=== PATIENT | male | born 1970 | race Two or more races ===

== ENCOUNTER 2017-05-23 12:31 | Inpatient (IN) | payer SELFPAY ==
[~2017-05-23 12:31] MED LIST: DEXAMETHASONE SOD PHOSPHATE INJ 4 MG/1 ML VIAL ONE; GLYCOPYRROLATE INJ 0.4 MG/2 ML VIAL ONE; LIDOCAINE 2% INJ-PF (20 MG/ML) 10 ML AMPUL ONE; NEOSTIGMINE METHYLSULFATE 10 MG/10 ML VIAL ONE; ONDANSETRON HCL INJ/PF 4 MG/2 ML SDV ONE; ROCURONIUM BROMIDE INJ 50 MG/5 ML VIAL IV ONE; SUCCINYLCHOLINE CHLORIDE INJ 200 MG/10 ML VIAL ONE; VECURONIUM BROMIDE INJ 10 MG VIAL IV ONE
--- NOTE | 2017-05-23 13:20 | ER Document Report ---
ED Medical Screen (RME) - General Mode of Arrival: Ambulatory Information source: Patient TRAVEL OUTSIDE OF THE [place] IN LAST 30 DAYS: No - HPI Patient complains to provider of: Abdominal Pain Onset: Yesterday Associated Symptoms: Other - see notes above - Related Data Smoking: Non-smoker Frequency of alcohol use: Occasional Drug Abuse: None <SURI YUNG - Last Filed: 05/23/17 14:34> <JAMES NIÑO - Last Filed: 05/23/17 20:16> - General Chief Complaint: Abdominal Cramping Stated Complaint: ABDOMINAL PAIN Time Seen by Provider: 05/23/17 12:49 Notes: 46-year-old male with no history of diverticulosis presents to the ED complaining of sharp left lower quadrant abdominal pain which radiates to the suprapubic region and the right upper quadrant that started yesterday. Patient states that the pain does not radiate to his back or scrotum. Pain is worsened when laying down and walking. Patient denies any stool changes or history of hemorrhoids. Patient does complain of a fever (101-102F) and nausea, but denies vomiting and diarrhea. (SURI YUNG) - Related Data Allergies/Adverse Reactions: No Known Allergies Allergy (Unverified 09/18/14 08:12) Past Medical History - General Information source: Patient - Social History Cigarette use (# per day): No Chew tobacco use (# tins/day): No Frequency of alcohol use: Occasional Drug Abuse: None - Medical History Medical History: Negative Renal/ Medical History: Denies: Hx Peritoneal Dialysis Surgical Hx: Negative - Immunizations Hx Diphtheria, Pertussis, Tetanus Vaccination: Yes <SURI YUNG - Last Filed: 05/23/17 14:34> Review of Systems - Review of Systems Constitutional: See HPI, Fever EENT: No symptoms reported Cardiovascular: No symptoms reported Respiratory: No symptoms reported Gastrointestinal: See HPI, Abdominal pain, Nausea. denies: Diarrhea, Vomiting Genitourinary: No symptoms reported Male Genitourinary: No symptoms reported Musculoskeletal: No symptoms reported Skin: No symptoms reported Hematologic/Lymphatic: No symptoms reported Neurological/Psychological: No symptoms reported -: Yes All other systems reviewed and negative <SURI YUNG - Last Filed: 05/23/17 14:34> Physical Exam - General General appearance: Alert In distress: None - Respiratory Respiratory status: No respiratory distress Breath sounds: Normal - Cardiovascular Rhythm: Regular Heart sounds: Normal auscultation Murmur: No Friction rub: No Gallop: None auscultated - Abdominal Inspection: Normal Distension: No distension Bowel sounds: Normal Tenderness: Tender - Patient is exquisitely tender to the left lower quadrant, but is also tender to the suprapubic region and right upper quadrant.. No: Nontender <SURI YUNG - Last Filed: 05/23/17 14:34> Course - Laboratory Result Diagrams: 05/23/17 13:35 05/23/17 13:35 <SURI YUNG - Last Filed: 05/23/17 14:34> - Laboratory Result Diagrams: 05/23/17 13:35 05/23/17 13:35 <JAMES NIÑO - Last Filed: 05/23/17 20:16> - Vital Signs Vital signs: Temp Pulse Resp BP Pulse Ox 99.6 F 80 26 H 105/65 100 05/23/17 16:31 05/23/17 16:31 05/23/17 18:00 05/23/17 18:00 05/23/17 18:00 - Laboratory Laboratory results interpreted by me: 05/23/17 05/23/17 05/23/17 13:35 13:35 13:35 WBC 17.6 H RDW 15.0 H Seg Neutrophils % 84.0 H Lymphocytes % 10.7 L Absolute Neutrophils 14.7 H Potassium 3.5 L Glucose 135 H Urine Protein 100 H Urine Ketones TRACE H Urine Blood MODERATE H Urine Bilirubin MODERATE H Urine Urobilinogen 4.0 H Doctor's Discharge <SURI YUNG - Last Filed: 05/23/17 14:34> <JAMES NIÑO - Last Filed: 05/23/17 20:16> - Discharge Clinical Impression: Bowel perforation Scribe Documentation - Scribe Written by Kane:: Kane Valverde, 05/23/2017 1442 acting as scribe for :: Tom <SURI YUNG - Last Filed: 05/23/17 14:34>
[2017-05-23] MEDS ORDERED: ONDANSETRON HCL INJ/PF 4 MG/2 ML SDV IV ONE (13:26)
[2017-05-23 14:07] LABS: ABSOLUTE BASOPHILS # (AUTO) 0.1 10^3/uL (0.0-0.2); ABSOLUTE LYMPHOCYTES (AUTO) 1.9 10^3/uL (0.5-4.7); ABSOLUTE MONOCYTES (AUTO) 0.9 10^3/uL (0.1-1.4); ABSOLUTE NEUT (AUTO) 14.7 10^3/uL (1.7-8.2); BASOPHILS % (AUTO) 0.3 % (0-2); HEMATOCRIT 41.8 % (37.9-51.0); HEMOGLOBIN 13.7 g/dL (13.5-17.0); HGB HCT DIFFERENCE -0.7; LYMPHOCYTES % (AUTO) 10.7 % (13-45); MEAN CORPUSCULAR HEMOGLOBIN 30.3 pg (27.0-33.4); MEAN CORPUSCULAR HGB CONC 32.7 g/dL (32.0-36.0); MEAN CORPUSCULAR VOLUME 93 fl (80-97); RED BLOOD COUNT 4.51 10^6/uL (4.35-5.55); WHITE BLOOD COUNT 17.6 10^3/uL (4.0-10.5)
[2017-05-23 14:14] LABS: APPEARANCE,URINE SLIGHTLY-CLOUDY; BILIRUBIN,URINE MODERATE (NEGATIVE); GLUCOSE, URINE NEGATIVE (NEGATIVE); KETONES,URINE TRACE mg/dL (NEGATIVE); LEUKOCYTE ESTERASE,URINE NEGATIVE (NEGATIVE); NITRITE,URINE NEGATIVE (NEGATIVE); PROTEIN,URINE 100 mg/dL (NEGATIVE); URINE SPECIFIC GRAVITY 1.036
[2017-05-23 14:23] LABS: ALANINE AMINOTRANSFERASE 33 U/L (21-72); ALBUMIN 4.2 g/dL (3.5-5.0); ALKALINE PHOSPHATASE 91 U/L (38-126); ANION GAP 12 (5-19); ASPARTATE AMINO TRANSFERASE 21 U/L (17-59); BILIRUBIN,DIRECT 0.4 mg/dL (0.0-0.4); BLOOD UREA NITROGEN 12 mg/dL (7-20); CALCIUM 9.3 mg/dL (8.4-10.2); CARBON DIOXIDE 25 mmol/L (22-30); CHLORIDE 102 mmol/L (98-107); CREATININE RESULT 0.92 mg/dL (0.52-1.25); GLUCOSE 135 mg/dL (75-110); POTASSIUM 3.5 mmol/L (3.6-5.0); SODIUM 139.3 mmol/L (137-145); TOTAL PROTEIN 8.2 g/dL (6.3-8.2)
--- NOTE | 2017-05-23 15:27 | ER Document Report ---
ED GI/ - General Chief Complaint: Abdominal Cramping Stated Complaint: ABDOMINAL PAIN Time Seen by Provider: 05/23/17 12:49 Mode of Arrival: Ambulatory Notes: Patient is a 46-year-old male who presents emergency department complaining of left lower quadrant cramping abdominal pain with sudden onset yesterday afternoon. Patient states that he was just relaxing and not recently in the medial knee and felt sudden onset of the left lower quadrant cramping pain with radiation to the suprapubic region and right upper quadrant. No associated radiation to his back or scrotum. States it is worse with lying down and walking.. Patient states that at that time he also felt hot and had a fever of 102. Patient states that he took Motrin. Patient admits to nausea without vomiting, denies any diarrhea or constipation. Last bowel movement was earlier this afternoon without any evidence of dark tarry stools or blood. Patient states that he has a history of similar symptoms approximately 2 years ago and he was evaluated here and discharged home without any formal diagnosis of any GI pathology. 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 Patient denies any personal or family history regarding Crohn's disease, ulcerative colitis, diverticulosis. Patient does not have a primary care provider Social history significant for social alcohol use but denies any tobacco or drug use. No previous surgical history TRAVEL OUTSIDE OF THE [place] IN LAST 30 DAYS: No - Related Data Allergies/Adverse Reactions: No Known Allergies Allergy (Unverified 09/18/14 08:12) Past Medical History - General Information source: Patient - Social History Smoking Status: Current Every Day Smoker Cigarette use (# per day): No Chew tobacco use (# tins/day): No Frequency of alcohol use: Occasional Drug Abuse: None Family History: Reviewed & Not Pertinent, Hypertension Patient has suicidal ideation: No Patient has homicidal ideation: No - Medical History Medical History: Negative Renal/ Medical History: Denies: Hx Peritoneal Dialysis Surgical Hx: Negative - Immunizations Hx Diphtheria, Pertussis, Tetanus Vaccination: Yes Review of Systems - Review of Systems Constitutional: See HPI Cardiovascular: See HPI Respiratory: See HPI Gastrointestinal: See HPI -: Yes All other systems reviewed and negative Physical Exam - Vital signs Vitals: Temp Pulse Resp BP Pulse Ox 98.5 F 113 H 15 105/65 97 05/23/17 12:39 05/23/17 12:39 05/23/17 12:39 05/23/17 12:39 05/23/17 12:39 - Notes Notes: PHYSICAL EXAM GENERAL: Alert, interacts well. LUNGS: Clear to auscultation bilaterally, no wheezes, rales, or rhonchi. No respiratory distress. HEART: Regular rate and rhythm. No murmurs, gallops, or rubs. ABDOMEN: Mildly distended, moderate tenderness in the left lower quadrant without guarding, rebound, or rigidity.. Bowel sounds present in all 4 quadrants. EXTREMITIES: Moves all 4 extremities spontaneously. No edema, radial and dorsalis pedis pulses 2/4 bilaterally. No cyanosis. NEUROLOGICAL: Alert and oriented x4. Normal speech. PSYCH: Normal affect, normal mood. SKIN: Warm, dry, normal turgor. No rashes or lesions noted. Course - Re-evaluation Re-evalutation: 05/23/17 15:26 Patient is a 46-year-old male who is hemodynamic stable, no acute distress and afebrile. Blood work and imaging initially ordered in triage. CBC shows elevated white blood cell count of 17.6. Waiting for CT of the abdomen and pelvis with p.o. and IV contrast to evaluate for diverticulitis and any other acute intra-abdominal process 05/23/17 17:41 CT of the abdomen and pelvis reveals free intraperitoneal air with concern for possible small bowel obstruction, evidence of diverticulosis. Patient has been n.p.o. since midnight. I have consulted Dr. Foster on-call surgeon who will come and evaluate the patient in the emergency department for likely surgery this evening. IV Zosyn has been initiated as well as IV fluids. Patient is clinically doing well as his pain is controlled and denies any nausea. Patient will be admitted to surgical service. - Vital Signs Vital signs: Temp Pulse Resp BP Pulse Ox 99.6 F 80 22 H 113/61 100 05/23/17 16:31 05/23/17 16:31 05/23/17 16:31 05/23/17 16:31 05/23/17 16:31 - Laboratory Result Diagrams: 05/23/17 13:35 05/23/17 13:35 Laboratory results interpreted by me: 06/30/17 06/30/17 06/30/17 13:35 13:35 13:35 WBC 17.6 H RDW 15.0 H Seg Neutrophils % 84.0 H Lymphocytes % 10.7 L Absolute Neutrophils 14.7 H Potassium 3.5 L Glucose 135 H Urine Protein 100 H Urine Ketones TRACE H Urine Blood MODERATE H Urine Bilirubin MODERATE H Urine Urobilinogen 4.0 H - Diagnostic Test Radiology reviewed: Image reviewed, Reports reviewed Discharge - Discharge Clinical Impression: Perforation of intestine Condition: Stable Disposition: ADMITTED INPATIENT Admitting Provider: Surgicalist - Kristin Unit Admitted: Surgical Floor
[2017-05-23] MEDS ORDERED: MORPHINE SULFATE 10 MG/ML INJ IV ONE (15:36)
[2017-05-23] MEDS ORDERED: PIPERACILLIN/TAZOBACTAM 4.5 GM VIAL IV ONE (17:22)
--- NOTE | 2017-05-23 17:28 | RADIOLOGY REPORT (SQ) ---
EXAM DESCRIPTION: CT ABD/PELVIS WITH IV ORAL COMPLETED DATE/TIME: 05/23/2017 4:55 pm REASON FOR STUDY: LLQ pain, suspect diverticulitis COMPARISON: None. TECHNIQUE: CT scan of the abdomen and pelvis performed with intravenous and oral contrast using sobia naomie scanning technique with dynamic intravenous contrast injection. Images reviewed with lung, soft t issue, and bone windows. Reconstructed coronal and sagittal MPR images reviewed. Delayed images for e valuation of the urinary system also acquired. All images stored on PACS. All CT scanners at this facility use dose modulation, iterative reconstruction, and/or weight based d osing when appropriate to reduce radiation dose to as low as reasonably achievable (ALARA). [facility]: Dose Right [facility]: CareDose [facility]: Dose Right [facility]: Teradose 4D [facility]: [employer] CONTRAST TYPE AND DOSE: contrast/concentration: Isovue 370.00 mg/ml; Total Contrast Delivered: 65.0 ml; Total Saline Delivered: 65.0 ml RENAL FUNCTION: Not recorded RADIATION DOSE: 49.98 . LIMITATIONS: None. FINDINGS: LOWER CHEST: No significant findings. No nodules or infiltrates. LIVER: Fatty infiltration of the liver. No focal masses. SPLEEN: Normal size. No focal lesions. PANCREAS: No masses. No significant calcifications. No adjacent inflammation or peripancreatic fluid collections. Pancreatic duct not dilated. GALLBLADDER: No identified stones by CT criteria. No inflammatory changes to suggest cholecystitis. ADRENAL GLANDS: No significant masses or asymmetry. RIGHT KIDNEY AND URETER: No solid masses. No significant calcifications. No hydronephrosis or hyd roureter. LEFT KIDNEY AND URETER: No solid masses. No significant calcifications. No hydronephrosis or hydr oureter. AORTA AND VESSELS: No aneurysm. No dissection. Renal arteries, SMA, celiac without stenosis. RETROPERITONEUM: No retroperitoneal adenopathy, hemorrhage or masses. BOWEL AND PERITONEAL CAVITY: Small amount of fluid in the left lower quadrant. Extraluminal air best seen on sagittal image 56. Marked thickening of small bowel loops in the left mid abdomen with thic kening of adjacent colon and marked pericolonic and small bowel fat stranding. Proximal small bowel dilatation. Few scattered diverticular in the sigmoid and descending colons. APPENDIX: Not visualized. PELVIS: No masses. Free fluid. ABDOMINAL WALL: No masses. No hernias. BONES: No significant or acute findings. OTHER: No other significant finding. IMPRESSION: Free intraluminal air with marked abnormal small bowel loops left mid abdomen and proxim al dilatation. Although there are adjacent inflammatory changes of the descending and sigmoid colon with a few scattered diverticular, the primary process appears to be small bowel with a small bowel p erforation. Underlying etiologies to consider are tumor, ischemia, and inflammation. COMMENT: Pertinent findings on the imaging study reported as a CRITICAL RESULT to Kaley at17:22 on 05/23/2017. Category of Critical Result: Free intraperitoneal air TECHNICAL DOCUMENTATION: JOB ID: [id number] Quality ID # [id number]: Final reports with documentation of one or more dose reduction techniques (e.g., Au tomated exposure control, adjustment of the mA and/or kV according to patient size, use of iterative reconstruction technique) 2010 [employer]- All Rights Reserved
[2017-05-23] MEDS ORDERED: NORMAL SALINE 1000 ML 1,000 ML IV PRN (17:34)
[2017-05-23] MEDS ORDERED: FENTANYL CITRATE INJ/PF 250 MCG/5 ML AMPULE ONE (18:49)
[2017-05-23] MEDS ORDERED: MIDAZOLAM 2 MG/2 ML INJ ONE (18:49)
[2017-05-23] MEDS ORDERED: HYDROMORPHONE HCL INJ/PF 2 MG/ML AMPULE ONE (18:49)
[2017-05-23] MEDS ORDERED: PROPOFOL INJ 200 MG/20 ML VIAL IV ONE (18:50)
[2017-05-23] MEDS ORDERED: ACETAMINOPHEN 100 ML IV ONE (18:50)
--- NOTE | 2017-05-23 18:59 | HISTORY AND PHYSICAL E ---
History and Physical NAME: ANGELO NIEVES : 1970 AGE: 46Y ADMITTED: 05/23/2017 ROOM: ED11 CHIEF COMPLAINT: Abdominal pain. HISTORY OF PRESENT ILLNESS: This is a 46-year-old male who complained of left lower quadrant pains around 3:00 yesterday in the afternoon, associated with fever and nausea. He denies any dysuria, diarrhea, or constipation. He took ibuprofen. However, the pains got worse today and went to the emergency room. He had a CAT scan of the abdomen in the ER, which showed free air in the abdomen possibly from small bowel. There is no definite evidence of diverticulitis, but he does have some diverticulosis. CAT scan findings were reviewed with the radiologist. PAST MEDICAL HISTORY: No previous surgery or medical problems. SOCIAL HISTORY: Denies smoking, drinking, or drug use. He lives with his . ALLERGIES: None known. REVIEW OF SYSTEMS: As in HPI. The rest of the systems reviewed and unremarkable. PHYSICAL EXAMINATION: GENERAL: A well-developed, well-nourished 46-year-old male, alert and oriented, complaining of abdominal pain. NECK: Supple. No thyromegaly. LUNGS: Clear. HEART: The heart rate is slightly tachycardic with a rate of 105 per minute. ABDOMEN: His abdomen was soft, but tender in the left lower quadrant, with rebound. Less tender in the left upper quadrant. Mild tenderness also in the right lower quadrant. EXTREMITIES: No edema. IMPRESSION: Bowel preparation, possibly from small bowel. PLAN: Hydrate and IV antibiotics, for exploratory laparotomy, possible small bowel resection, possible colostomy. DICTATING PHYSICIAN: MISTY BHATIA M.D. [id number] PHY#: [id number] ID: [id number] JOB#: [id number] ACCT: [id number] cc: >
[2017-05-23] MEDS ORDERED: PROMETHAZINE HCL INJ 25 MG/1 ML VIAL IV PRN (19:54)
[2017-05-23] MEDS ORDERED: MEPERIDINE HCL/PF INJ 25 MG/1 ML DISP.SYRIN IV PRN (19:54)
[2017-05-23] MEDS ORDERED: MORPHINE SULFATE 10 MG/ML INJ IV PRN (19:54)
[2017-05-23] MEDS ORDERED: DIPHENHYDRAMINE HCL 50 MG/ML VIAL IV PRN (19:54)
[2017-05-23] MEDS ORDERED: FENTANYL CITRATE INJ/PF 100 MCG/2 ML AMPUL IV PRN ×3 (19:54)
[2017-05-23] MEDS ORDERED: PIPERACILLIN/TAZOBACTAM 3.375 GM VIAL IV PRN (22:41)
[2017-05-23] MEDS ORDERED: ONDANSETRON HCL INJ/PF 4 MG/2 ML SDV IV PRN (22:43)
[2017-05-23] MEDS ORDERED: ACETAMINOPHEN 325 MG TABLET PO PRN (22:43)
[2017-05-23] MEDS: NORMAL SALINE 1000 ML 1,000 ML IV PRN (23:10)
--- NOTE | 2017-05-23 23:18 | OPERATIVE REPORT E ---
Operative Report NAME: ANGELO NIEVES : 1970 AGE: 46Y DATE OF SURGERY: 05/23/2017 ROOM: ED11 PREOPERATIVE DIAGNOSIS: Perforated bowel. POSTOPERATIVE DIAGNOSIS: Perforated acute sigmoid diverticulitis. OPERATION: 1. Exploratory laparotomy. 2. Resection of sigmoid diverticulitis, sigmoid colostomy and Jackeline pouch. 3. Takedown of the splenic flexure. SURGEON: MISTY BHATIA M.D. ANESTHESIA: INDICATION: This is a 46-year-old male who complained of pains in the abdomen on 05/22/17 around 3 p.m., associated with fever and nausea. The pains persisted and went to the emergency room where a CAT scan of the abdomen revealed perforated bowel. His white count is elevated to 17,000. DESCRIPTION OF PROCEDURE: After adequate general anesthesia, the patient was placed in a supine position and the abdomen prepped and draped in the usual sterile fashion. An appropriate timeout was done. Next, a midline incision was made from the mid epigastric area down to the pubis. The fascia was then divided with cautery and the abdominal cavity entered. There was a little gush of air on entering the abdomen. On exploration of the abdomen, there appears to be a small bowel stuck to the area of the sigmoid diverticulitis. The small bowel was peeled off and was noted to have no evidence of perforation. It was also noted to be viable though somewhat thickened wall. The diverticulitis was identified and noted to have quite a good length of inflammation. It was then divided with the use of MAGUE on the distal end where it became soft. The sigmoid colon was dissected off the lateral gutter. It was noted to be markedly adherent on one area on the lateral side, and sharp dissection with #15 blade was done to prevent any injury laterally. The mesentery of the sigmoid colon was then divided with LigaSure. The proximal end of the diverticulitis was then stapled with a TA-60 and the distal end clamped with intestinal clamp and sigmoid colon shaved off the TA-60 with a #10 blade. The staple was then released and there was a bleeder on one end of the staple line which was clamped and ligated with 2-0 Vicryl. The whole sigmoid diverticulitis area was completely removed and taken out of the OR table for pathology evaluation. The perforation site was not visualized and may have been occluded. Next, the proximal sigmoid colon was then dissected off the lateral gutter and splenic flexure taken down. A good segment of the sigmoid colon was free to allow for the end colostomy to be brought up over the abdominal wall. Next, the abdominal cavity was copiously irrigated with at least 5 L of saline. The small bowel was then run from the ligament of Treitz all the way down into the cecum and no abnormality noted other than the segment buttressed to the sigmoid diverticulitis which was slightly thickened but widely patent. The appendix also identified and noted to be normal. A 3 cm circumferential skin in the left lower quadrant just lateral and below the umbilicus was then removed with the cutting side of the cautery. Next the fascia was then divided in a cruciate fashion with the use of cautery. The opening allowed at least 2 fingers to be put through the defect. The sigmoid colon with an intact staple line was then brought up through the colostomy defect through the fascia. The midline fascia was then closed with running suture using #1 PDS single-arm, starting on both ends and tying them both just above the umbilicus site. The subcutaneous area was then irrigated and the skin closed with abhi. A transparent dressing was then placed over the main incision site. Next, the colostomy was then matured using 3-0 Vicryl sutures. A colostomy appliance was then placed over the colostomy. The colostomy appeared viable. The patient tolerated the procedure well. The needle, instrument, and sponge count were all correct and estimated blood loss about 200 mL. Patient then brought to PACU in satisfactory condition. DICTATING PHYSICIAN: MISTY BHATIA M.D. [id number] PHY#: [id number] ID: [id number] JOB#: [id number] ACCT: [id number] cc:MISTY BHATIA M.D. > MTDSven
[2017-05-24] MEDS ORDERED: PIPERACILLIN/TAZOBACTAM 3.375 GM VIAL IV ONE (01:01)
[2017-05-24] MEDS: PIPERACILLIN SODIUM/TAZOBACTAM 3.375 GM in NORMAL SALINE 100 ML IV SCH ×5 (01:27→23:45)
[2017-05-24 05:23] LABS: ABSOLUTE LYMPHOCYTES (AUTO) 0.9 10^3/uL (0.5-4.7); ABSOLUTE MONOCYTES (AUTO) 0.5 10^3/uL (0.1-1.4); ABSOLUTE NEUT (AUTO) 11.3 10^3/uL (1.7-8.2); BASOPHILS % (AUTO) 0.2 % (0-2); HEMATOCRIT 36.5 % (37.9-51.0); HGB HCT DIFFERENCE -1.4; LYMPHOCYTES % (AUTO) 7.2 % (13-45); MEAN CORPUSCULAR HEMOGLOBIN 30.4 pg (27.0-33.4); MEAN CORPUSCULAR HGB CONC 32.1 g/dL (32.0-36.0); MEAN CORPUSCULAR VOLUME 95 fl (80-97); MONOCYTES % (AUTO) 3.6 % (3-13); RED BLOOD COUNT 3.86 10^6/uL (4.35-5.55); RED CELL DISTRIBUTION WIDTH 15.1 % (11.5-14.0); WHITE BLOOD COUNT 12.6 10^3/uL (4.0-10.5)
[2017-05-24 05:25] LABS: HEMOGLOBIN 11.7 g/dL (13.5-17.0)
[2017-05-24 05:28] LABS: BLOOD UREA NITROGEN 9 mg/dL (7-20); CALCIUM 7.8 mg/dL (8.4-10.2); CARBON DIOXIDE 23 mmol/L (22-30); CHLORIDE 105 mmol/L (98-107); GLUCOSE 143 mg/dL (75-110); SODIUM 137.8 mmol/L (137-145)
[2017-05-24 05:29] LABS: ANION GAP 10 (5-19)
[2017-05-24] MEDS: NORMAL SALINE 1000 ML 1,000 ML IV PRN ×2 (06:03→13:32)
[2017-05-24] MEDS: HYDROMORPHONE HCL INJ/PF 2 MG/ML AMPULE IV PRN ×3 (07:22→14:44)
[2017-05-24] MEDS ORDERED: ENOXAPARIN SODIUM INJ 40 MG/0.4 ML DISP.SYRIN SUBCUT ONE (12:30)
--- NOTE | 2017-05-24 13:19 | PROGRESS NOTE E ---
Progress Note NAME: ANGELO NIEVES : 1970 AGE: 46Y DATE: 05/24/2017 ROOM: 323 SUBJECTIVE: Today is his first postop day. He is still complaining of incisional pains, controlled with parenteral pain medications. He denies any nausea or vomiting. OBJECTIVE: The colostomy is viable but not working at this time. His abdomen is flat and soft. The incision is clean and dry. PLAN: We will discontinue his De Jesus this morning but keep him n.p.o. for now. I encouraged him to ambulate and hopefully once the colostomy starts functioning, we can start him on clear liquids, hopefully in the next 24-48 hours. His white count also has come down to 12,000 from 17,000 preop. Will repeat his white count in the morning. DICTATING PHYSICIAN: MISTY BHATIA M.D. [id number] PHY#: [id number] ID: [id number] JOB#: [id number] ACCT: [id number] cc: > MTDD
[2017-05-25] MEDS: HYDROMORPHONE HCL INJ/PF 2 MG/ML AMPULE IV PRN ×2 (00:15→12:32)
[2017-05-25] MEDS: PIPERACILLIN SODIUM/TAZOBACTAM 3.375 GM in NORMAL SALINE 100 ML IV SCH ×3 (05:29→17:48)
[2017-05-25 06:38] LABS: ABSOLUTE LYMPHOCYTES (AUTO) 1.2 10^3/uL (0.5-4.7); ABSOLUTE MONOCYTES (AUTO) 0.6 10^3/uL (0.1-1.4); ABSOLUTE NEUT (AUTO) 7.2 10^3/uL (1.7-8.2); BASOPHILS % (AUTO) 0.1 % (0-2); EOSINOPHILS % (AUTO) 0.1 % (0-6); HEMATOCRIT 31.1 % (37.9-51.0); HEMOGLOBIN 9.9 g/dL (13.5-17.0); HGB HCT DIFFERENCE -1.4; LYMPHOCYTES % (AUTO) 12.9 % (13-45); MEAN CORPUSCULAR HEMOGLOBIN 30.2 pg (27.0-33.4); MEAN CORPUSCULAR HGB CONC 31.9 g/dL (32.0-36.0); MEAN CORPUSCULAR VOLUME 95 fl (80-97); MONOCYTES % (AUTO) 6.9 % (3-13); RED BLOOD COUNT 3.29 10^6/uL (4.35-5.55); RED CELL DISTRIBUTION WIDTH 15.1 % (11.5-14.0)
[2017-05-25 06:55] LABS: ANION GAP 8 (5-19); BLOOD UREA NITROGEN 12 mg/dL (7-20); CALCIUM 7.7 mg/dL (8.4-10.2); CARBON DIOXIDE 24 mmol/L (22-30); CHLORIDE 108 mmol/L (98-107); CREATININE RESULT 0.81 mg/dL (0.52-1.25); GLUCOSE 100 mg/dL (75-110); SODIUM 140.1 mmol/L (137-145)
[2017-05-25] MEDS: ENOXAPARIN SODIUM INJ 40 MG/0.4 ML DISP.SYRIN SUBCUT SCH (10:04)
[2017-05-25] MEDS: NORMAL SALINE 1000 ML 1,000 ML IV PRN ×2 (10:07→19:57)
[2017-05-26] MEDS: PIPERACILLIN SODIUM/TAZOBACTAM 3.375 GM in NORMAL SALINE 100 ML IV SCH ×4 (01:28→18:33)
[2017-05-26] MEDS: HYDROMORPHONE HCL INJ/PF 2 MG/ML AMPULE IV PRN ×2 (01:28→13:51)
[2017-05-26] MEDS: NORMAL SALINE 1000 ML 1,000 ML IV PRN ×2 (07:45→19:46)
[2017-05-26] MEDS ORDERED: DOCUSATE SODIUM 100 MG CAPSULE PO PRN (09:37)
[2017-05-26] MEDS ORDERED: OXYCODONE-ACETAMINOPHEN 5-325 MG TABLET PO PRN (09:37)
--- NOTE | 2017-05-26 09:50 | PDOC PROGRESS REPORT ---
Subjective Progress Note for:: 05/26/17 Subjective:: No compliants. Ostomy working. Pain controlled. Physical Exam Vital Signs: Temp Pulse Resp BP Pulse Ox 99.1 F 60 20 119/65 95 05/26/17 08:04 05/26/17 08:04 05/26/17 08:04 05/26/17 08:04 05/26/17 08:04 Intake & Output 05/25/17 05/26/17 05/27/17 06:59 06:59 06:59 Intake Total 3120 2520 Output Total 895 1100 Balance 2225 1420 Weight 65.7 kg 66.8 kg General appearance: PRESENT: no acute distress GI/Abdominal exam: PRESENT: other - Abdomen soft nontender; ostomy with stool. Results Laboratory Results: 05/25/17 05:14 05/25/17 05:14 Impressions: Abdomen/Pelvis CT 05/23/17 13:26 IMPRESSION: Free intraluminal air with marked abnormal small bowel loops left mid abdomen and proximal dilatation. Although there are adjacent inflammatory changes of the descending and sigmoid colon with a few scattered diverticular, the primary process appears to be small bowel with a small bowel perforation. Underlying etiologies to consider are tumor, ischemia, and inflammation. Assessment & Plan - Diagnosis (1) Bowel perforation Is this a current diagnosis for this admission?: YesPlan: Patient is postoperative day 3 status post exploratory laparotomy, sigmoid colectomy, Madsen's procedure for perforated diverticular disease. Patient is doing well, tolerating a diet, having good pain control voiding and no evidence of sepsis. Plan: 1. Start p.o. pain medication, and p.o. Colace. This 2. Advance diet to full liquid 3. Patient may shower.
[2017-05-26] MEDS: ENOXAPARIN SODIUM INJ 40 MG/0.4 ML DISP.SYRIN SUBCUT SCH (10:26)
[2017-05-27] MEDS: PIPERACILLIN SODIUM/TAZOBACTAM 3.375 GM in NORMAL SALINE 100 ML IV SCH ×4 (00:56→17:36)
[2017-05-27] MEDS: NORMAL SALINE 1000 ML 1,000 ML IV PRN ×2 (04:33→13:30)
[2017-05-27] MEDS: HYDROMORPHONE HCL INJ/PF 2 MG/ML AMPULE IV PRN ×2 (08:22→15:56)
[2017-05-27] MEDS: ENOXAPARIN SODIUM INJ 40 MG/0.4 ML DISP.SYRIN SUBCUT SCH (09:52)
--- NOTE | 2017-05-27 20:08 | PROGRESS NOTE E ---
Progress Note NAME: ANGELO NIEVES : 1970 AGE: 46Y DATE: 05/27/2017 ROOM: 323 SUBJECTIVE: The patient has no complaints, is tolerating p.o. well. Denies abdominal pain, nausea, vomiting. He has stool through the colostomy. OBJECTIVE: VITAL SIGNS: Stable. The patient is afebrile. All vital signs within normal limits. ABDOMEN: Soft, nondistended, nontender. Colostomy pink with stool in the colostomy bag. DIAGNOSTIC DATA: New blood work ordered for today. ASSESSMENT: 1. POSTOPERATIVE DAY #4 FOR A LAPAROTOMY, SIGMOIDECTOMY, AGUILAR POUCH, AND COLOSTOMY. 2. PATIENT IS HEMODYNAMICALLY STABLE, AFEBRILE. 3. THE PATIENT TOLERATED P.O. WELL. 4. COLOSTOMY IS WORKING. PLAN: 1. Discharge her home tonight. 2. Follow up in the office with Dr. Ruth next week. 3. Augmentin 875 mg p.o. b.i.d. 4. Narco for pain 1 q.6 h. p.r.n. for pain. 5. Activity as tolerated. 6. Regular diet. 7. Shower only until the abhi are removed. DICTATING PHYSICIAN: ZHANNA BURROUGHS M.D. [id number] PHY#: [id number] ID: [id number] JOB#: [id number] ACCT: [id number] cc:ZHANNA BURROUGHS M.D. >
--- NOTE | 2017-05-27 21:43 | DISCHARGE SUMMARY E ---
Discharge Summary NAME: ANGELO NIEVES : 1970 AGE: 46Y ADMITTED: 05/24/2017 DISCHARGED: 05/27/2017 FINAL DIAGNOSIS: Perforated sigmoid diverticulitis. PROCEDURE: 05/23/2017: The patient underwent laparotomy and sigmoidectomy with Jackeline pouch with colostomy. COMPLICATIONS: None. HOSPITAL COURSE: This is a healthy 46-year-old male who presented to the hospital with a history of abdominal pain. A CAT scan of the abdomen and pelvis was done revealing a perforated viscus. He was taken to surgery and underwent a sigmoidectomy for perforated colon diverticulitis with Jackeline pouch and end colostomy. The procedure was well tolerated. The patient was then transferred to the floor. His postop course was unremarkable. His diet was subsequently advanced to a full liquid and then a regular diet. On the day of discharge, the patient had no complaints, was tolerating p.o.'s well and his vital signs were stable. His physical exam was unremarkable. His abdomen was soft. He had a mid abdominal wound that was clean. Colostomy was pink with stools in the bag. PLAN: The patient was discharged to home 05/27/2017. He was given a regular diet and follow up appointment with Dr. Ruth within a week. He was given Volga 5/325 one p.o. q.6 h. p.r.n. for pain. He was given Augmentin 875 mg p.o. b.i.d. for a week. He was instructed to follow a regular diet. Activity as tolerated. No heavy lifting more than 10 pounds for about [address] as long as he is off narcotics and he has minimal abdominal discomfort. DICTATING PHYSICIAN: ZHANNA BURROUGHS M.D. [id number] PHY#: [id number] ID: [id number] JOB#: [id number] ACCT: [id number] cc:ZHANNA BURROUGHS M.D., E. RJosh > [facility]
[2017-05-27 21:55] VITALS: BP 111/64
== END 2017-05-27 22:49 | disposition home or self-care (01) | DRG 330 ==
LOC: ER 12:31 → EH 17:54 → UNDOADMIN 17:54 → EH 22:41 → 3W 22:41 → EH 05-24 → 3W 05-24
PROVIDERS: ATTEND Surgery
PROC: 0DBN0ZZ Excision of Sigmoid Colon, Open Approach (ICD-10-PCS; principal; 2017-05-23 19:00)
PROC: 0D1N0Z4 Bypass Sigmoid Colon to Cutaneous, Open Approach (ICD-10-PCS; 2017-05-23 19:00)
DX: K57.20 Diverticulitis of large intestine with perforation and abscess without bleeding (principal)
CPT/HCPCS: 36415; 74177; 80048; 80053; 81001; 840; 85025; 87070; 87075; 87205; 88307; 94799; 96374; 96375; 99285; J0131; J0330; J1100; J1170; J1650; J2250; J2270; J2405; J2543; J2704; J3010; J3490; J7030

== ENCOUNTER 2017-07-05 09:17 | Emergency (ER) | payer SELFPAY ==
[2017-07-05] MEDS ORDERED: KETOROLAC TROMETHAMINE 60 MG/2 ML SDV IM ONE (09:42)
--- NOTE | 2017-07-05 09:50 | ER Document Report ---
HPI - HPI Patient complains to provider of: shoulder pain Pain Level: 5 Context: 46 yo male c/o bilat anterior shoulder pain x 2 weeks. + pain with movement, pain worse at night when trying to rest. pt denies trauma, radiculopathy or paresthesia. 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 no previous shoulder injury. denies fever, cough or shortness of breath. pt was seen by urgent care earlier this week for same complaint. was treated with cyclobenzaprine and diclofenac without relief. 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 IN LAST 30 DAYS: No - HEENT HEENT: Atraumatic, PERRLA - NECK Neck: Normal Inspection, Supple - RESPIRATORY Respiratory: Breath Sounds Normal, No Respiratory Distress O2 Sat by Pulse Oximetry: 100 - CARDIOVASCULAR Cardiovascular: Regular Rate, Regular Rhythm - MUSCULOSKELETAL/EXTREMETIES Musculoskeletal/Extremeties: Tender - focal subacromial tenderness at the lateral or posterior-lateral border of the acromion, + painful arc Course - Re-evaluation Re-evalutation: 07/05/17 09:51 H&P c/w rotator cuff tendonopthy. will try short course of oral steroids with close follow up with primary care. pt agreeable with plan and stable for discharge - Vital Signs Vital signs: Temp Pulse Resp BP Pulse Ox 98.4 F 101 H 16 107/63 100 07/05/17 09:20 07/05/17 09:20 07/05/17 09:20 07/05/17 09:20 07/05/17 09:20 Discharge - Discharge Clinical Impression: Shoulder pain, bilateral Qualifiers: Chronicity: acute Qualified Code(s): M25.511 - Pain in right shoulder; M25.512 - Pain in left shoulder Condition: Stable Disposition: HOME, SELF-CARE Instructions: Tendonitis ([facility]), Steroid Medication, Ice Packs ([facility]), Toradol Injection ([facility]) Additional Instructions: Take medications as prescribed for inflammation apply ice to painful areas Follow up with your primary care if pain persists Prescriptions: Prednisone [Deltasone 10 mg Tablet] 10 mg PO ASDIR PRN #21 tablet PRN Reason:
[2017-07-05 10:05] VITALS: BP 106/61
== END 2017-07-05 10:05 | disposition home or self-care (01) ==
LOC: ER 09:17
DX: M25.511 Pain in right shoulder (principal); M25.512 Pain in left shoulder
CPT/HCPCS: 99283; 96372; J1885

== ENCOUNTER 2018-01-01 07:10 | Day surgery (SDC) | payer BC ==
[2018-01-01] MEDS ORDERED: NALOXONE HCL INJ/PF 0.4 MG/1 ML SDV ONE (07:23)
[2018-01-01] MEDS ORDERED: ONDANSETRON HCL INJ/PF 4 MG/2 ML SDV ONE (07:23)
[2018-01-01] MEDS ORDERED: GLYCOPYRROLATE INJ 0.4 MG/2 ML VIAL ONE (07:23)
[2018-01-01] MEDS ORDERED: GLUCAGON,HUMAN RECOMB 1 MG INJ ONE (07:24)
[2018-01-01] MEDS ORDERED: EPINEPHRINE INJ 1 MG/10 ML DISP.SYRIN ONE (07:24)
[2018-01-01] MEDS ORDERED: FLUMAZENIL INJ 0.5 MG/5 ML VIAL ONE (07:24)
[2018-01-01] MEDS: MIDAZOLAM 2 MG/2 ML INJ ONE ×4 (07:44→08:24)
[2018-01-01] MEDS: FENTANYL CITRATE INJ/PF 100 MCG/2 ML AMPUL ONE ×4 (07:47→08:25)
[2018-01-01] MEDS ORDERED: LIDOCAINE 2% JELLY 30 ML TUBE ONE (08:21)
--- NOTE | 2018-01-01 08:49 | Operative Report ---
Operative Report DATE OF SURGERY: 01/01/18 PREOPERATIVE DIAGNOSIS: History of sigmoid perforation, sigmoid colectomy, colostomy and Madsen's procedure POSTOPERATIVE DIAGNOSIS: Same with. 1. Scattered rare residual diverticulosis disease. 2. Diversion proctitis. 3. Small hyperplastic polyps of the rectum OPERATION: 1. Colonoscopy through diverting sigmoid colostomy to cecum. 2. Flexible proctoscopy. 3. Manual disimpaction of the anal rectal canal of feces. 4. Polypectomy 2 of the rectum SURGEON: PAULETTE RODRIGUEZ ANESTHESIA: Moderate Sedation TISSUE REMOVED OR ALTERED: Polyps COMPLICATIONS: None ESTIMATED BLOOD LOSS: Scant INTRAOPERATIVE FINDINGS: See below PROCEDURE: Obtaining informed consent the patient was taken from the preoperative holding area to the main endoscopy suite where monitoring devices were attached to the patient. Plan and surgical timeout were conducted The patient was placed in the eye position, diverting colostomy bag removed. Digital examination with lubricated finger of the diverting colostomy reveals no stenoses. The flexible adult colonoscope was advanced through the diverting colostomy all the way to the cecum. This was an excellent study and a well-prepped bowel. Transillumination of the intra-abdominal wall visualization of the ileocecal junction firm cecal intubation. The scope was withdrawn to the length of the colon scattered diverticulosis 3 identified. There was no evidence of tumor stricture bleeding colitis or polyp. There was no tortuosity of the colostomy. This portion of the procedure was completed by withdrawal of the scope from the ostomy. The patient was now placed in the left lateral decubitus position. Rectal exam was performed. Sphincter tone was moderate to high. There was significant amount of pain fecal balls which required approximately 20 minutes of manual disimpaction. She was tolerated well by the patient. I then performed flexible proctoscopy with the colonoscope of the Madsen's pouch. The pouch was approximately 21 cm long. There was evidence of diversion colitis, moderate to severe in areas. Photographs were taken. Were also several small hyperplastic polyp was removed cold forceps biopsy device. Bleeding was minimal. Scope was withdrawn through the remainder of the anorectal canal. Internal hemorrhoids identified. Scope withdrawn the patient's anus. Tolerated procedure well. Per surveillance guidelines, patient be appropriate candidate for follow-up colonoscopy in 3 years, or sooner if symptoms develop. In the interim, patient will be an appropriate candidate for colostomy takedown.
--- NOTE | 2018-01-01 08:50 | PDOC DISCHARGE SUMMARY ---
Discharge Summary (SDC) - Discharge Final Diagnosis: 1. Status post colostomy 2. Diversion proctitis 3. Rare diverticulosis 4 hyperplastic polyps of the rectum. Date of Surgery: 01/01/18 Discharge Date: 01/01/18 Condition: Good Treatment or Instructions: [facility] [address] [address] POST ENDOSCOPY DISCHARGE INSTRUCTIONS 1. Diet: Start clear liquids that a regular diet as tolerated. 2. Resume all preoperative medications. All oral anticoagulants and aspirins can be resumed 24 hours after procedure. 3. If a polypectomy was performed some bleeding per rectum may occur. This should stop within 3 days. If not, please contact the office. 4. If you had a colonoscopy you may experience some bloating and delayed return of normal bowel function for several days, your regular bowel movement pattern should resume within a week. 5. Please contact [facility] at to make an appointment with Dr. Ruth for 1 to 3 weeks following procedure. 6. If you have any questions or concerns regarding your care,treatment plan or follow up, please contact our office. 7. Per clinical guidelines we recommend you undergo a repeat colonoscopy in 3 years. Discharge Diet: As Tolerated Discharge Activity: Activity As Tolerated Home Care Assistance: None Needed Report the Following to Your Physician Immediately: Shortness of Breath, Increase in Pain, Fever over 101 Degrees
[2018-01-01 09:37] VITALS: BP 117/67
== END 2018-01-01 09:50 | disposition home or self-care (01) ==
LOC: END 07:10
PROVIDERS: ATTEND Surgery
PROC: 0DBP8ZX Excision of Rectum, Via Natural or Artificial Opening Endoscopic, Diagnostic (ICD-10-PCS; principal; 2018-01-01 07:30)
DX: K57.30 Diverticulosis of large intestine without perforation or abscess without bleeding (principal); K62.89 Other specified diseases of anus and rectum; K63.5 Polyp of colon; Z87.19 Personal history of other diseases of the digestive system
CPT/HCPCS: 45380; 88305 ×2; J2250; J3010; J0171; J1610; J2310; J2405; J3490

== ENCOUNTER 2018-02-18 05:34 | Inpatient (IN) | payer BC ==
[2018-02-11 10:31] LABS: HEMATOCRIT 41.2 % (37.9-51.0); HEMOGLOBIN 13.8 g/dL (13.5-17.0); MEAN CORPUSCULAR HEMOGLOBIN 32.3 pg (27.0-33.4); MEAN CORPUSCULAR HGB CONC 33.5 g/dL (32.0-36.0); MEAN CORPUSCULAR VOLUME 96 fl (80-97); PLATELET COUNT 272 10^3/uL (150-450); RED BLOOD COUNT 4.28 10^6/uL (4.35-5.55); RED CELL DISTRIBUTION WIDTH 15.4 % (11.5-14.0); WHITE BLOOD COUNT 6.3 10^3/uL (4.0-10.5)
--- NOTE | 2018-02-11 11:04 | EKG REPORT ---
SEVERITY:- ABNORMAL ECG - SINUS RHYTHM LEFT ATRIAL ABNORMALITY ST ELEV, PROBABLE NORMAL EARLY REPOL PATTERN : Confirmed by: Marlon Mancera 11-Feb-2018 11:03:35
[2018-02-11 11:05] LABS: ANION GAP 12 (5-19); BLOOD UREA NITROGEN 10 mg/dL (7-20); CALCIUM 9.9 mg/dL (8.4-10.2); CARBON DIOXIDE 26 mmol/L (22-30); CHLORIDE 105 mmol/L (98-107); GLUCOSE 91 mg/dL (75-110); POTASSIUM 3.9 mmol/L (3.6-5.0); SODIUM 143.3 mmol/L (137-145)
[~2018-02-18 05:34] MED LIST changes: +AMPICILLIN SODIUM/SULBACTAM NA 3 GM in NORMAL SALINE 100 ML IV PRN; -DEXAMETHASONE SOD PHOSPHATE INJ 4 MG/1 ML VIAL ONE; -GLYCOPYRROLATE INJ 0.4 MG/2 ML VIAL ONE; +LACTATED RINGERS 1000 ML IV PRN; +LIDOCAINE 0.5% INJ-PF (5 MG/ML) 50 ML SDV SUBCUT PRN; -LIDOCAINE 2% INJ-PF (20 MG/ML) 10 ML AMPUL ONE; -NEOSTIGMINE METHYLSULFATE 10 MG/10 ML VIAL ONE; -ONDANSETRON HCL INJ/PF 4 MG/2 ML SDV ONE; -ROCURONIUM BROMIDE INJ 50 MG/5 ML VIAL IV ONE; -SUCCINYLCHOLINE CHLORIDE INJ 200 MG/10 ML VIAL ONE; -VECURONIUM BROMIDE INJ 10 MG VIAL IV ONE
[2018-02-18] MEDS ORDERED: LIDOCAINE 2% INJ-PF (20 MG/ML) 10 ML AMPUL ONE (07:01)
[2018-02-18] MEDS ORDERED: FENTANYL CITRATE INJ/PF 250 MCG/5 ML AMPULE ONE (07:01)
[2018-02-18] MEDS ORDERED: DEXAMETHASONE SOD PHOSPHATE INJ 4 MG/1 ML VIAL ONE (07:02)
[2018-02-18] MEDS ORDERED: PROPOFOL INJ 200 MG/20 ML VIAL IV ONE ×2 (07:02→07:26)
[2018-02-18] MEDS ORDERED: ACETAMINOPHEN 100 ML IV ONE (07:02)
[2018-02-18] MEDS ORDERED: ONDANSETRON HCL INJ/PF 4 MG/2 ML SDV ONE (07:02)
[2018-02-18] MEDS ORDERED: MIDAZOLAM 2 MG/2 ML INJ ONE ×2 (07:02→12:52)
[2018-02-18] MEDS ORDERED: BUPIVACAINE HCL 0.25 % INJ/PF (2.5 MG/1 ML) 30 ML VIAL ONE (07:42)
[2018-02-18] MEDS ORDERED: FENTANYL CITRATE INJ/PF 100 MCG/2 ML AMPUL IV PRN ×3 (07:42)
[2018-02-18] MEDS ORDERED: MORPHINE SULFATE 10 MG/ML INJ IV PRN (07:42)
[2018-02-18] MEDS ORDERED: OXYCODONE-ACETAMINOPHEN 5-325 MG TABLET PO PRN ×2 (07:42)
[2018-02-18] MEDS ORDERED: BUPIVACAINE INJ/PF LIPOSOME/PF 266 MG/20 ML SDV ONE (07:42)
[2018-02-18] MEDS ORDERED: PROMETHAZINE HCL INJ 25 MG/1 ML VIAL IV PRN ×2 (07:42)
[2018-02-18] MEDS ORDERED: DIPHENHYDRAMINE HCL 50 MG/ML VIAL IV PRN (07:42)
[2018-02-18] MEDS ORDERED: MEPERIDINE HCL/PF INJ 25 MG/1 ML DISP.SYRIN IV PRN (07:42)
[2018-02-18] MEDS ORDERED: EPHEDRINE SULFATE INJ 50 MG/1 ML AMPULE ONE (07:51)
[2018-02-18] MEDS ORDERED: GLUCAGON,HUMAN RECOMB 1 MG INJ ONE (09:13)
[2018-02-18] MEDS ORDERED: FENTANYL CITRATE INJ/PF 100 MCG/2 ML AMPUL ONE (10:11)
[2018-02-18] MEDS ORDERED: KETOROLAC TROMETHAMINE 60 MG/2 ML SDV ONE (10:23)
[2018-02-18] MEDS ORDERED: VECURONIUM BROMIDE INJ 10 MG VIAL IV ONE (10:23)
[2018-02-18] MEDS ORDERED: PHENYLEPHRINE HCL INJ/PF 10 MG/1 ML SDV ONE (10:23)
[2018-02-18] MEDS ORDERED: NEOSTIGMINE METHYLSULFATE 10 MG/10 ML VIAL ONE (10:23)
[2018-02-18] MEDS ORDERED: GLYCOPYRROLATE INJ 0.4 MG/2 ML VIAL ONE (10:23)
[2018-02-18] MEDS ORDERED: SUCCINYLCHOLINE CHLORIDE INJ 200 MG/10 ML VIAL ONE (10:23)
[2018-02-18] MEDS ORDERED: ONDANSETRON 4 MG TAB.RAPDIS PO PRN (10:54)
[2018-02-18] MEDS ORDERED: DEXTROSE 40% GEL 15 GM TUBE PO PRN ×2 (10:54)
[2018-02-18] MEDS ORDERED: DEXTROSE 50%-WATER 25 GM/50 ML DISP.SYRIN IV PRN ×2 (10:54)
[2018-02-18] MEDS ORDERED: GLUCAGON,HUMAN RECOMB 1 MG INJ SUBCUT PRN (10:54)
[2018-02-18] MEDS: FENTANYL CITRATE INJ/PF 100 MCG/2 ML AMPUL ONE ×2 (11:15→11:20)
[2018-02-18] MEDS ORDERED: MORPHINE SULFATE 10 MG/ML INJ ONE (11:50)
--- NOTE | 2018-02-18 11:59 | OPERATIVE REPORT E ---
Operative Report NAME: ANGELO NIEVES : 1970 AGE: 47Y DATE OF SURGERY: 02/18/2018 ROOM: OR PREOPERATIVE DIAGNOSES: 1. History of complicated sigmoid diverticulitis with perforation, Hinchey classification 1 status post colectomy and colostomy. 2. Diversion proctitis. POSTOPERATIVE DIAGNOSES: 1. History of complicated sigmoid diverticulitis with perforation, Hinchey classification 1 status post colectomy and colostomy. 2. Diversion proctitis. 3. Intra-abdominal adhesions. PROCEDURES: 1. Exploratory laparotomy with lysis of adhesions. 2. Takedown of colostomy. 3. Mobilization of splenic flexure. 4. Stapled colorectostomy with 29 mm EEA stapler. 5. Appendectomy. SURGEON: PAULETTE RUTH M.D. ROASTER SUPERVISOR: ЕКАТЕРИНА Casillas ANESTHESIA: General. ESTIMATED BLOOD LOSS: 100 mL. DRAINS: None. TISSUE REMOVED: Portions of colostomy and rectal stump; appendix. SUMMARY OF OPERATION: Patient was taken to the main operating room of [facility] where he underwent general anesthesia. Arms were extended, the abdomen was exposed, colostomy appliance removed, and colostomy closed with 3-0 Prolene suture. A De Jesus catheter was now inserted. Initially a 14-Slovak De Jesus was attempted but would not advance into the bladder; an 18-Slovak De Jesus was then successfully inserted with minimal resistance. Clear yellow urine returned with a few flakes of clot which cleared immediately. Patient was placed in the lithotomy position, legs in stirrups. The abdomen and perineum were prepped and draped in sterile fashion. Surgical plan and surgical time out were conducted. We anesthetized the skin around the colostomy with Marcaine solution. We then took down the colostomy while making an incision around the colostomy, using electrocautery and blunt dissection, mobilized the colostomy all the way down to the fascia. We now divided the closed end of the colostomy with a single firing of a MAGUE 55 stapler. The left colon hereafter was allowed to retract to the peritoneal cavity. We now opened up the abdomen through a standard midline incision along the previous well-developed scar from the initial laparotomy. There was a significant amount of scar tissue but sharp entry into the peritoneal cavity permitted excellent access to the entire viscera. We took the incision cephalad to the epigastric region, and caudad towards the pelvis. We stayed within the previous scar, however. Moderate lysis of adhesions performed now, thereby freeing up the left colon, as well as the omentum. A portion of the falciform ligament was taken down as well. We established Bookwalter retractor, airplaned the patient with the left side up, proceeded to mobilize the left colon and subsequently the splenic flexure. Fortunately the colon was very mobile, and attachments came down from the splenorenal area very easily. Of note, however, there were some adhesive bands between the distal transverse colon and the tail of the pancreas. These were taken down carefully and under excellent visualization. Once the left colon and splenic flexure were completely mobilized, we had the transverse colon and left colon floppy and mobile easily brought down into the pelvis. Of note, the left colic artery and vein appeared to be intact. At no point during the entire operation were we concerned about the viability of the distal left colon. It bled nicely throughout the case. We now repositioned our graspers and turned our attention to the pelvis. The patient had undergone transection of the terminal sigmoid colon. The colon was flopped on itself so this required mobilization with electrocautery all under direct visualization. The stapled end of the distal sigmoid colon upper rectum was thickened. There was no evidence of abscess or other pathology but we preferred to resect approximately 4 cm of the terminal sigmoid colon, thereby bringing the new Jackeline pouch down to the level of the upper rectum. This was effected by a single firing of a TA 60 stapler distal to the previous staple line. We now had the rectal stump free and were satisfied we were in appropriate position to effect the anastomosis. We now brought the left colon up into the free space of the wound. We brought onto the field an auto pursestring stapler. The auto stapler was then deployed across the free end of the left colon and fired. Once the stapling device was removed, we placed Allis clamps on the cut edge of the colon. The colon at this point was approximately 2.5 cm in diameter in terms of the lumen. We brought onto the field the colonic dilators and easily deployed the 25 mm obturator. We now gave the patient 1 mg of Glucagon and deployed the 29 mm obturator. It was tight but caused no evidence of injury to the lumen. We now brought onto the field a non- 29 mm EEA stapler, blue load. The anvil was removed, inserted into the terminal end of the left colon and the pursestring secured. We were satisfied with the fixation around the end of the colon. Redundant fat was removed carefully. We now felt we were ready to effect the anastomosis. Dr. Ruth went down below, dilated up the anal canal to admit 2 index fingers. I then performed rigid sigmoidoscopy to ensure there was no significantly retained feces. Some small fecal matter was evacuated. The diversion colitis seen on colonoscopy 1 month ago had essentially resolved. Of note, the anorectal canal was very anteriorly oriented in this particular gentleman's pelvis. The length of the Jackeline pouch was approximately 19 cm from staple line to anal verge. I now admitted the 25, then the 29 obturators in sequence. We now brought the stapler into position by advancing up the anorectal canal. The transected rectal stump was moderately edematous, causing some interest in the thickness of the tissue; however, we were able to bring the stapler into position such that we could effect the anastomosis anterior to the transected staple line of the stump. We brought the pin out, and then brought the anvil down, locked the pin with the anvil, tightened to the appropriate tension, and deployed the stapling device. Stapler was then removed per county ordinary guidelines. The anvil was removed, with the revelation that 2 donuts were retrieved with the proximal one completely intact and the distal one with a portion of it intact medially but peripherally there was some break in the tissue. We now performed rigid sigmoidoscopy; the pelvis was filled with saline, colon occluded proximally, and distention of the anorectal canal effected through the rigid proctoscope. The anastomosis was widely patent without bleeding. There was no evidence of leak into the pelvis. There was no evidence of trauma to the anorectal canal despite the somewhat tortuous contour previously referenced with regards to the anterior orientation of the rectum. The sigmoidoscope was removed, and air in the region of the anastomosis evacuated. At this point we felt the principal portion of the operation was complete. Of note, the patient's appendix was 3 times the normal length. Because of his young age, potential risk of appendicitis in the future, and now a hostile abdomen, we felt that interval appendectomy was appropriate so this was effected by taking down the mesoappendix between LigaSure clamp. The appendix was clamped off at its base, with the stump tied off with a 3-0 PDS suture. Of note, there was a small mucus collection at the base of the appendix but it did not appear pathologic. We left it as is. At this point we felt the operation was complete. Sponge and needle counts were correct. We irrigated the peritoneal cavity out and there was no significant mechanical bleeding. The colostomy defect was closed transversely with two #1 PDS sutures running transversely, closing the posterior fascia and the anterior fascia separately. The midline incision was closed with 2 double-stranded #1 PDS sutures. Skin approximated with abhi. Subcutaneous tissue anesthetized with Exparel diluted 100%. Abdominal binder applied. Patient taken out of position, extubated, taken to recovery in stable condition. ЕКАТЕРИНА Casillas assisted with retraction, bowel manipulation, local anesthesia delivery and wound closure. DICTATING PHYSICIAN: PAULETTE RUTH M.D. [id number] PHY#: [id number] ID: [id number] JOB#: [id number] ACCT: [id number] cc:PAULETTE RUTH M.D. >
[2018-02-18] MEDS ORDERED: ACETAMINOPHEN INJ/PF 1000 MG/100 ML SDV IV SCH (12:00)
[2018-02-18] MEDS: ACETAMINOPHEN 100 ML IV SCH ×2 (18:54→23:57)
[2018-02-19] MEDS: MORPHINE SULFATE 10 MG/ML INJ IV PRN (01:26)
[2018-02-19] MEDS: ACETAMINOPHEN 100 ML IV SCH ×3 (05:07→18:54)
[2018-02-19] MEDS: KETOROLAC TROMETHAMINE INJ/PF 30 MG/1 ML SDV IV PRN ×3 (07:51→22:16)
[2018-02-19] MEDS: DEXTROSE 5%-LACTATED RINGERS 1,000 ML IV PRN (08:47)
[2018-02-19] MEDS ORDERED: ONDANSETRON 4 MG TAB.RAPDIS PO PRN (10:30)
--- NOTE | 2018-02-19 10:35 | PDOC PROGRESS REPORT ---
Subjective Progress Note for:: 02/19/18 Reason For Visit: HISTORY OF DIVERTICULITIS,S/P COLOSTOMY takedown Patient did well overnight, no complaints, pain control, tolerating sips of clear liquids; De Jesus catheter out, has not voided Physical Exam Vital Signs: Temp Pulse Resp BP Pulse Ox 98.9 F 68 18 104/59 L 100 02/19/18 07:17 02/19/18 07:17 02/19/18 07:17 02/19/18 07:17 02/19/18 07:17 Intake & Output 02/18/18 02/19/18 02/20/18 06:59 06:59 06:59 Intake Total 0 3100 Output Total 2580 Balance 0 520 Weight 62.2 kg General appearance: PRESENT: no acute distress GI/Abdominal exam: PRESENT: other - Dressing of her colostomy removed; abhi in Neetu is intact; midline honeycomb dressing left in position. Abdomen is soft. Results Laboratory Results: 02/11/18 09:30 02/11/18 09:30 Assessment & Plan - Diagnosis (1) S/P colostomy takedown Is this a current diagnosis for this admission?: Yes Plan: Patient is one day status post open colostomy takedown with colorectal rectal anastomosis, stapled, doing well, hemodynamically stable, adequate urine output , pain controlled. Recommendations: 1. Await voiding spontaneously 2. Out of bed hiking in the halls 3. Maintain on clear liquid sips for now. 4. Anticipate Neetu drain removal at colostomy site in a.m.
[2018-02-20] MEDS: ACETAMINOPHEN 100 ML IV SCH ×4 (00:26→18:47)
[2018-02-20] MEDS: DEXTROSE 5%-LACTATED RINGERS 1,000 ML IV PRN (05:42)
[2018-02-20] MEDS: KETOROLAC TROMETHAMINE INJ/PF 30 MG/1 ML SDV IV PRN ×2 (10:38→18:47)
[2018-02-20] MEDS: MORPHINE SULFATE 10 MG/ML INJ IV PRN (11:37)
--- NOTE | 2018-02-20 15:10 | PDOC PROGRESS REPORT ---
Subjective Progress Note for:: 02/20/18 Subjective:: Had BM this am with some blood. Mild abdominal pains primarily along incision site Reason For Visit: HISTORY OF DIVERTICULITIS,S/P COLOSTOMY TAKEDOWN Physical Exam Vital Signs: Temp Pulse Resp BP Pulse Ox 98.7 F 76 17 99/53 L 100 02/20/18 07:15 02/20/18 07:15 02/20/18 07:15 02/20/18 07:15 02/20/18 07:15 Intake & Output 02/19/18 02/20/18 02/21/18 06:59 06:59 06:59 Intake Total 3100 1891 Output Total 2580 475 Balance 520 1416 Weight 62.2 kg 65 kg Exam: Abd flat and soft with mild incisional tenderness. Closed colostomy site not inflamed. 2 tavon drains removed. Results Laboratory Results: 02/11/18 09:30 02/11/18 09:30 Assessment & Plan - Time Time Spent with patient: 15-24 minutes - Inpatient Certification Medical Necessity: Need For IV Fluids, Need for Pain Control - Plan Summary Plan Summary: Blood in the stool expected post reversal of colostomy Gradually increase diet to full liquids today. OOB
[2018-02-21] MEDS: ACETAMINOPHEN 100 ML IV SCH ×3 (00:37→12:55)
[2018-02-21] MEDS: KETOROLAC TROMETHAMINE INJ/PF 30 MG/1 ML SDV IV PRN (00:37)
[2018-02-21] MEDS ORDERED: KETOROLAC TROMETHAMINE 10 MG TABLET PO PRN (09:25)
--- NOTE | 2018-02-21 09:25 | PDOC PROGRESS REPORT ---
Subjective Progress Note for:: 02/21/18 Reason For Visit: HISTORY OF DIVERTICULITIS,S/P COLOSTOMY TAKEDOWN Patient tolerating full liquid diet, voiding, ambulating, no pain expressed. Has had some bloody drainage. Physical Exam Vital Signs: Temp Pulse Resp BP Pulse Ox 98.8 F 91 17 137/72 H 100 02/21/18 07:25 02/21/18 07:25 02/21/18 07:25 02/21/18 07:25 02/21/18 07:25 Intake & Output 02/20/18 02/21/18 02/22/18 06:59 06:59 06:59 Intake Total 1891 2411 Output Total 475 Balance 1416 2411 Weight 65 kg 63 kg General appearance: PRESENT: no acute distress GI/Abdominal exam: PRESENT: other - Dysart intact, honeycomb dressing replaced ; ostomy site looks excellent with drains out Results Laboratory Results: 02/11/18 09:30 02/11/18 09:30 Assessment & Plan - Diagnosis (1) S/P colostomy takedown Is this a current diagnosis for this admission?: Yes Plan: Operative day 3, doing well, tolerating a diet voiding and having early gas and mucousy stools. Recommendations: 1. Advance diet as tolerated 2. Patient may shower 3. Switch patient to p.o. Toradol 4. Anticipate discharge over the next 12-24 hours.
[2018-02-21 18:59] VITALS: BP 124/78
--- NOTE | 2018-02-25 09:14 | DISCHARGE SUMMARY E ---
Discharge Summary NAME: ANGELO NIEVES : 1970 AGE: 47Y ADMITTED: 02/18/2018 DISCHARGED: 02/22/2018 SUMMARY OF HOSPITALIZATION: The patient is a 47-year-old -[place] male with a history of sigmoid colectomy, colostomy, and Madsen's procedure for complicated diverticulitis. He is brought to ambulatory surgery for colostomy takedown. The patient was taken to the operating room by Dr. Ruth on February 18, 2018, and underwent colostomy takedown. This was performed as an open procedure. He tolerated it well. There were no complications. Postoperatively he had return of bowel function and excellent pain control. His drains at the colostomy site were removed on postoperative day 2. By postoperative day 4 he was ready for discharge home, tolerating a diet, voiding and moving his bowels without difficulty. FINAL DIAGNOSIS: Status post colostomy takedown for complicated diverticular disease, by Dr. Ruth. DISPOSITION: The patient will be discharged home in the care of his family. Followup with Dr. Ruth in approximately 1-2 weeks, take Toradol p.r.n. pain, shower, and resume any preoperative medications, diet and activity. He will be unrestricted activity status. DICTATING PHYSICIAN: PAULETTE RUTH M.D. [id number] YAIMA#: [id number] ID: [id number] JOB#: [id number] ACCT: [id number] cc:PAULETTE RUTH M.D. >
== END 2018-02-21 19:40 | disposition home or self-care (01) | DRG 331 ==
LOC: INOR 05:34 → EDSTATUS 07:30 → 4N 12:35
PROVIDERS: ADMIT Surgery; ATTEND Surgery
PROC: 0DSN0ZZ Reposition Sigmoid Colon, Open Approach (ICD-10-PCS; 2018-02-18)
PROC: 0D1N0ZP Bypass Sigmoid Colon to Rectum, Open Approach (ICD-10-PCS; 2018-02-18)
PROC: 0DNL0ZZ Release Transverse Colon, Open Approach (ICD-10-PCS; 2018-02-18)
PROC: 0DTJ0ZZ Resection of Appendix, Open Approach (ICD-10-PCS; 2018-02-18)
PROC: 0DJD8ZZ Inspection of Lower Intestinal Tract, Via Natural or Artificial Opening Endoscopic (ICD-10-PCS; 2018-02-18)
PROC: 0DBN0ZZ Excision of Sigmoid Colon, Open Approach (ICD-10-PCS; principal; 2018-02-18 07:30)
DX: Z43.3 Encounter for attention to colostomy (principal); Z87.19 Personal history of other diseases of the digestive system; Z90.49 Acquired absence of other specified parts of digestive tract; K66.0 Peritoneal adhesions (postprocedural) (postinfection); K62.89 Other specified diseases of anus and rectum; K38.9 Disease of appendix, unspecified
CPT/HCPCS: 36415; 80048; 840; 85027; 88302; 88304; 93005; 93010; 94799; C9290; J0131; J0295; J0330; J1100; J1610; J1885; J2250; J2270; J2370; J2405; J2704; J3010; J3490

== ENCOUNTER → 2018-04-01 | Outpatient (CLI) | payer BC, OTHER ==
--- NOTE | 2018-04-01 11:17 | RADIOLOGY REPORT (SQ) ---
EXAM DESCRIPTION: ACUTE ABDOMEN SERIES COMPLETED DATE/TIME: 04/01/2018 11:10 am REASON FOR STUDY: R10.32 LEFT LOWER QUADRANT PAIN R10.32 LEFT LOWER QUADRANT PAIN COMPARISON: None. NUMBER OF VIEWS: Three views. TECHNIQUE: Frontal chest, supine abdomen and upright/decubitus abdomen radiographic images acquired. LIMITATIONS: None. FINDINGS: CHEST: Lungs clear of infiltrates. FREE AIR: None. No abnormal gas collections. BOWEL GAS PATTERN: Nonobstructive pattern. No dilated loops or air fluid levels. CALCIFICATIONS: No suspicious calcifications. HARDWARE: None in the abdomen. SOFT TISSUES: No gross mass or suggestion of organomegaly. BONES: No acute fracture. No worrisome bone lesions. OTHER: No other significant finding. IMPRESSION: NO RADIOGRAPHIC EVIDENCE FOR ACUTE ABDOMINAL DISEASE. TECHNICAL DOCUMENTATION: JOB ID: [id number] [employer]- All Rights Reserved Reading location - IP/workstation name: [email or web address]
[2018-04-01 12:21] LABS: ABSOLUTE BASOPHILS # (AUTO) 0.1 10^3/uL (0.0-0.2); ABSOLUTE MONOCYTES (AUTO) 0.5 10^3/uL (0.1-1.4); ABSOLUTE NEUT (AUTO) 8.4 10^3/uL (1.7-8.2); BASOPHILS % (AUTO) 0.7 % (0-2); EOSINOPHILS % (AUTO) 0.2 % (0-6); HEMATOCRIT 36.9 % (37.9-51.0); HEMOGLOBIN 12.2 g/dL (13.5-17.0); LYMPHOCYTES % (AUTO) 9.8 % (13-45); MEAN CORPUSCULAR HEMOGLOBIN 31.7 pg (27.0-33.4); MEAN CORPUSCULAR HGB CONC 33.1 g/dL (32.0-36.0); MEAN CORPUSCULAR VOLUME 96 fl (80-97); MONOCYTES % (AUTO) 5.3 % (3-13); PLATELET COUNT 263 10^3/uL (150-450); RED BLOOD COUNT 3.85 10^6/uL (4.35-5.55); RED CELL DISTRIBUTION WIDTH 15.7 % (11.5-14.0); TOTAL CELLS COUNTED % (AUTO) 100 %
[2018-04-01 12:38] LABS: ALANINE AMINOTRANSFERASE 18 U/L (21-72); ALBUMIN 4.3 g/dL (3.5-5.0); ALKALINE PHOSPHATASE 102 U/L (38-126); ANION GAP 11 (5-19); ASPARTATE AMINO TRANSFERASE 24 U/L (17-59); BILIRUBIN,DIRECT 0.5 mg/dL (0.0-0.4); BILIRUBIN,TOTAL 1.1 mg/dL (0.2-1.3); BLOOD UREA NITROGEN 11 mg/dL (7-20); CALCIUM 9.4 mg/dL (8.4-10.2); CARBON DIOXIDE 27 mmol/L (22-30); CHLORIDE 102 mmol/L (98-107); GLUCOSE 107 mg/dL (75-110); POTASSIUM 3.9 mmol/L (3.6-5.0); SODIUM 139.7 mmol/L (137-145); TOTAL PROTEIN 7.9 g/dL (6.3-8.2)
== END ==
LOC: RAD 10:44
PROVIDERS: ATTEND Physician Assistant Surgical
DX: R10.32 Left lower quadrant pain (principal)
CPT/HCPCS: 36415; 74022; 80053; 85025